=== PATIENT | male | born 1985 | race Two or more races ===

== ENCOUNTER 2022-12-17 20:26 | Emergency (ER) | payer OTHER ==
[~2022-12-17] VITALS: Ht 175.3 cm; Wt 78.9 kg
== END 2022-12-18 02:37 | disposition home or self-care (01) ==
LOC: ER 20:26
PROVIDERS: General Practice
DX: R42 Dizziness and giddiness (principal); H83.93 Unspecified disease of inner ear, bilateral; Z88.8 Allergy status to other drugs, medicaments and biological substances